=== PATIENT | male | born 1975 | race Two or more races ===

== ENCOUNTER 2024-08-26 07:37 | Emergency (ER) | payer MEDICAID ==
[~2024-08-26] VITALS: Ht 190.5 cm; Wt 82.6 kg
[~2024-08-26 07:37] MED LIST: COU1T PO
[2024-08-26 07:48] VITALS: TEMP 97.6
--- NOTE | 2024-08-26 08:27 | Physician Documentation ---
History of Present Illness ~ Chief Complaint: Testicular Pain Stated Complaint: GROIN PAIN Time Seen by MD: 08:16 Primary Medical Doctor: none HPI 49-year-old male presenting with right testicular swelling and pain that has been ongoing for the past seven days and worsening. He states that his testicle has become slightly painful and that has become red and is gradually growing larger. He describes some minimal dysuria but states that it is not overly painful. Denies any discharge from his urethra. He reports that he has had the same sexual partner for the past couple of years and actually has not had any sexual intercourse for about 5-6 months. No trauma to the area. He does endorse some subjective fevers and chills but no other associated symptoms. Medication Reconciliation Allergies: Coded Allergies: No Known Allergies (Unverified , 08/26/24) Scheduled Warfarin Sodium* (Coumadin*), 2 MG PO DAILY, (Reported) Past Medical History Past Medical History: No Pertinent History Past Surgical History: no surgical history Alcohol Use: Occasionally Drug Use: none Review of Systems All Other Systems at this time: Reviewed and Negative Physical Exam Vital Signs: Temperature: 97.6, Source: Temporal, Heart Rate: 90, Respiratory Rate: 18, BP: 105/75, Pulse Oximetry: 99, Weight: 82.600 General Appearance I have reviewed the triage vitals. CONST: Well developed and well nourished. In no acute distress HENT: Head Atraumatic EYES: Pupils are equal, round and reactive to light. Normal conjunctiva NECK: Normal range of motion. Supple. CARDIO: Normal rate and regular rhythm. No murmurs, rubs, or gallops. S1, S2. PULM/CHEST: No respiratory distress. Lungs clear to auscultation. No wheeze ABD: Soft and nontender. Nondistended. Bowel sounds normal. No guarding. : Normal penis. The right side of the scrotum is erythematous. Right testicle is enlarged with mild tenderness to palpation. Negative cremasteric reflex. MSK: No edema. No deformity. NEURO: Alert and oriented to person, place and time. Moving all extremities SKIN: Warm and dry. PSYCH: Normal mood and affect. Good eye contact. Progress Results/Orders Results/Orders Orders - TAMARA GUTIERREZ MD Culture Blood (08/26/24 08:23) Chlam/Gc Amp Ur (08/26/24 08:23) Us Testic/W/Duplex (08/26/24 08:23) Cult Urine + [address] (08/26/24 09:57) Completed Orders - TAMARA GUTIERREZ MD Electrocardiogram (08/26/24 08:23) Cbc/Diff (08/26/24 08:23) Hs Troponin I W Calculations (08/26/24 08:23) CMP (08/26/24 08:23) Lacticsepsis (08/26/24 08:23) Procalcitonin (08/26/24 08:23) Us Testic/W/Duplex (08/26/24 08:23) Ua W/Microscopic, Cult If Ind (08/26/24 09:33) Ceftriaxone/L5h-Asxzjhab 1gm (Rocephin 1 (08/26/24 10:15) Medications Received in ER Medications (Trade) Dose Ordered Sig/Liz Route PRN Reason Start Time Stop Time Status Last Admin Dose Admin Ceftriaxone Sodium 50 ml @ 100 mls/hr ONCE ONCE IV 08/26/24 10:15 08/26/24 10:44 DC 08/26/24 11:27 100 MLS/HR Vital Signs 08/26/24 08/26/24 08/26/24 08/26/24 07:48 08:28 09:57 11:34 Temp 97.6 Pulse 90 67 66 Resp 18 16 16 16 B/P (MAP) 105/75 131/88 (102) 119/76 (90) Pulse Ox 99 100 99 O2 Flow Rate 0 0 Laboratory Tests Test 08/26/24 08:36 08/26/24 08:42 08/26/24 09:33 Lactic Acid Level 1.0 White Blood Count 12.3 H Red Blood Count 4.62 L Hemoglobin 14.6 Hematocrit 42.9 Mean Corpuscular Volume 93.0 Mean Corpuscular Hemoglobin 31.5 H Mean Corpuscular Hemoglobin Concent 33.9 Red Cell Distribution Width 13.9 Platelet Count 165 Mean Platelet Volume 8.0 Neutrophils (%) (Auto) 86.3 H Lymphocytes (%) (Auto) 6.8 L Monocytes (%) (Auto) 6.2 Eosinophils (%) (Auto) 0.2 Basophils (%) (Auto) 0.5 Neutrophils # (Auto) 10.6 H Lymphocytes # (Auto) 0.8 L Monocytes # (Auto) 0.8 Eosinophils # (Auto) 0.0 Basophils # (Auto) 0.1 CBC Comment Sodium Level 136 Potassium Level 4.1 Chloride Level 102 Carbon Dioxide Level 28.0 Anion Gap 6 L Blood Urea Nitrogen 15 Creatinine 0.99 Estimated GFR/1.73 m2 80 BUN/Creatinine Ratio 15.2 Glucose Level 96 Calcium Level 9.4 Total Bilirubin 0.8 Aspartate Amino Transf (AST/SGOT) 17 Alanine Aminotransferase (ALT/SGPT) 17 Alkaline Phosphatase 51 Troponin I High Sensitivity < 4 L Troponin I High Sens Percent Delta Troponin I Hi Sens Absolute Change Total Protein 7.6 Albumin 3.3 L Globulin 4.3 Albumin/Globulin Ratio 0.8 L Procalcitonin 0.44 Chemistry Comments Urine Specimen Description Cln catch midstream Urine Color Yellow Urine Clarity Turbid Urine pH 6.0 Urine Specific [place] >=1.030 Urine Protein 30 H Urine Glucose (UA) Negative Urine Ketones Trace H Urine Occult Blood Small Urine Nitrite Negative Urine Bilirubin Moderate Urine Urobilinogen 1.0 Urine Leukocyte Esterase Small H Urine RBC 3-10 Urine WBC 50-100 H Urine WBC Clumps Few Urine Squamous Epithelial Cells Few Urine Renal Cells Few Urine Bacteria 4+ Urine Culture Indicated Indicated Volume Urine Centrifuged 10 ml Urine Comment Microbiology Date/Time Source Procedure Growth Status 08/26/24 09:57 Urine Clean Catch Midstream Urine Culture - Preliminary Culture received. Resulted 08/26/24 08:42 Blood Arm Right Blood Culture - Preliminary NEGATIVE (LESS THAN 24 HOURS) Resulted EKG/XRAY/CT/US/VASC/MRI Ultrasound : Impression CLINICAL INFORMATION: Right testicular swelling . TECHNIQUE: Grayscale sonographic imaging of the testicles and scrotal contents was performed , assisted by color doppler technique. Duplex doppler ultrasound of both testicles was performed. COMPARISON: None FINDINGS: The right testicle measures 4.8 x 3.1 x 3.4 cm, within normal limits. Heterogeneous echogenicity of the right testicle. Mildly increased vascular flow in the right testicle. Mildly heterogeneous echogenicity of the right epididymis with mildly increased vascular flow. Small to moderate right hydrocele. The left testicle measures 4.8 x 2.6 x 2.0 cm, within normal limits. Mildly heterogeneous echogenicity of the left testicle. Arterial and venous blood flow demonstrated. Unremarkable epididymis. No hydrocele or varicocele. IMPRESSION: 1. No sonographic evidence of testicular torsion. 2. Findings consistent with right epididymo-orchitis with small to moderate hydrocele Medical Decision Making Additional Comment 49-year-old male presenting with right-sided epididymitis and orchitis. This was evident from the clinical exam and clinical history. Additionally we did do an ultrasound of his testicles which confirmed this. The patient's lab work is grossly unremarkable aside from a urinalysis which is suggestive of a urinary tract infection. I did test the patient for gonorrhea and chlamydia as well and the results are pending at this time. Urine culture is also pending. The patient was treated with 1 g of ceftriaxone. I will additionally prescribe him a 10 day course of doxycycline as well as levofloxacin to cover him for both potential STDs as well as typical urinary pathogens. I advised him that for pain control he may take [id number] ibuprofen as needed. Patient was advised to monitor his symptoms for improvement and resolution. He is to follow up closely with his primary care physician in the next week. Return to the ED with any acutely worsening symptoms. Departure Disposition: 01 HOME / SELF CARE / HOMELESS Impression: Primary Impression: Orchitis and epididymitis Condition: Improved Discharge Instructions: Orchitis Additional Instructions: Please take your antibiotics as prescribed and monitor her symptoms for improvement and resolution. Please take ibuprofen 600 mg every 6 hours as needed for pain control. Follow up with primary care physician within the next week especially if not improving. Return to the emergency department with any acutely worsening symptoms. Referrals: NO PRIMARY CARE PROVIDER (PCP) Prescriptions Doxycycline Hyclate (Doxycycline Hyclate) 100 Mg Capsule 1 CAP PO Q12H for 10 Days, #20 CAP Prov: TAMARA GUTIERREZ MD 08/26/24 Levofloxacin (Levofloxacin) 500 Mg Tablet 1 TAB PO DAILY for 10 Days, #10 TAB Prov: TAMAAR GUTIERREZ MD 08/26/24 Signature Scribe Signature: 1 Attestation: 1 TAMARA GUTIERREZ MD Aug 26, 2024 08:27
[2024-08-26 09:11] LABS: MEAN PLATELET VOLUME 8.0 FL (7.4-10.4); RED CELL DISTRIBUTION WIDTH 13.9 % (11.5-14.5)
--- NOTE | 2024-08-26 09:19 | ELECTROCARDIOGRAPH REPORT ---
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
[2024-08-26 09:39] LABS: CREATININE 0.99 MG/DL (0.60-1.10); TOTAL CARBON DIOXIDE 28.0 MMOL/L (24-32); eCRCL 105 ML/MIN; eGFR 80 ML/MIN
[2024-08-26 09:41] LABS: LEUKOCYTE ESTERASE ,URINE SMALL (Neg); NITRITES, URINE NEGATIVE (Neg); OCCULT BLOOD,URINE SMALL (Neg)
[2024-08-26 09:43] LABS: UA COLLECTION TYPE CLN CATCH MIDSTREAM
--- NOTE | 2024-08-26 09:44 | RADIOLOGY REPORT ---
CLINICAL INFORMATION: Right testicular swelling . TECHNIQUE: Grayscale sonographic imaging of the testicles and scrotal contents was performed , amanda dean by color doppler technique. Duplex doppler ultrasound of both testicles was performed. COMPARISON: None FINDINGS: The right testicle measures 4.8 x 3.1 x 3.4 cm, within normal limits. Heterogeneous echogenicity of t he right testicle. Mildly increased vascular flow in the right testicle. Mildly heterogeneous echog enicity of the right epididymis with mildly increased vascular flow. Small to moderate right hydrocel e. The left testicle measures 4.8 x 2.6 x 2.0 cm, within normal limits. Mildly heterogeneous echogenicit y of the left testicle. Arterial and venous blood flow demonstrated. Unremarkable epididymis. No hy drocele or varicocele. IMPRESSION: 1. No sonographic evidence of testicular torsion. 2. Findings consistent with right epididymo-orchitis with small to moderate hydrocele
[2024-08-26 09:48] LABS: SQUAMOUS EPITHELIAL CELL,UR FEW /LPF (FEW)
[2024-08-26 09:49] LABS: WBC CLUMPS,URINE FEW /HPF (NEGATIVE)
[2024-08-26 09:50] LABS: RENAL CELLS, URINE FEW /HPF
[2024-08-26] MEDS: CefTRIAXone/D5W-Rocephin 1gm 50 ML IV ONE (11:27)
[2024-08-26 11:34] VITALS: BP 119/76; PULSE 66; RESP 16; O2SAT 99
[2024-08-26] MEDS ORDERED: LEVO-65 PO (11:37)
[2024-08-26] MEDS ORDERED: DOXY-1 PO (11:37)
== END 2024-08-26 12:00 | disposition home or self-care (01) ==
LOC: ER 07:37
DX: N45.3 Epididymo-orchitis (principal); Z79.899 Other long term (current) drug therapy
CPT/HCPCS: 36415; 76870; 80053; 81001; 83605; 84145; 84484; 85025; 87040; 87088; 87491; 87591; 93005; 93976; 96365; 99285; J0696; 87077; 87186

== ENCOUNTER 2024-12-21 17:11 | Emergency (ER) | payer SELFPAY ==
[~2024-12-21] VITALS: Ht 177.8 cm; Wt 92.3 kg
[2024-12-21 17:23] VITALS: BP 133/85; PULSE 87; RESP 18; TEMP 98.4; O2SAT 99
--- NOTE | 2024-12-21 17:27 | ELECTROCARDIOGRAPH REPORT ---
[facility] Test Date: 2024-12-21 Test Time: 17:22:25 Pat Name: MELISSA DOBSON Department: EMERGENCY ROOM Room: Gender: M Dental Detail Representative: MARISELA : 1975 Requested By: MUNIR GARCIA Order Number: [id number] Reading MD: Measurements Intervals [place] Rate: 96 P: 71 HI: 159 QRS: 73 QRSD: 96 T: 51 QT: 309 QTc: 391 Interpretive Statements Sinus rhythm ST elev, probable normal early repol pattern Baseline wander in lead(s) I,II,aVR,aVF,V1 Please click the below link to view image of tracing.
[2024-12-21 17:45] LABS: MEAN PLATELET VOLUME 7.7 FL (7.4-10.4); RED CELL DISTRIBUTION WIDTH 16.3 % (11.5-14.5)
--- NOTE | 2024-12-21 17:45 | RADIOLOGY REPORT ---
EXAM: DI CHEST,SINGLE VIEW CLINICAL HISTORY: CP TECHNIQUE: Single AP view of the chest WID: COMPARISON: None FINDINGS: Lines and tubes: None Chest: The heart size and pulmonary vasculature is within normal limits. Calcified plaque projects over the aortic arch. No pleural effusion, pneumothorax, or consolidation. The osseous structures are grossly intact. IMPRESSION: 1. No acute cardiopulmonary abnormality.
[2024-12-21 17:57] LABS: CREATININE 0.80 MG/DL (0.60-1.10); PRO BRAIN NATRIURETIC PEPTIDE 34 PG/ML (0-125); TOTAL CARBON DIOXIDE 25.1 MMOL/L (24-32); eCRCL 115 ML/MIN; eGFR > 90 ML/MIN
--- NOTE | 2024-12-21 18:43 | Physician Documentation ---
History of Present Illness ~ Chief Complaint: Chest Pain Stated Complaint: CP Time Seen by MD: 21:10 Primary Medical Doctor: none HPI This is a 49-year-old male who presents with a two days of left upper lateral chest pain extending to his left anterior shoulder, patient reports onset upon waking two days prior, patient reports no aggravating or palliating factors. Pain is described as like a muscle strain. Patient reports no shortness of breath or nausea. Patient reports no other acute symptoms or concerns. Patient reports no significant past medical history though does report he is a every day smoker. Medication Reconciliation Allergies: Coded Allergies: No Known Allergies (Unverified , 12/21/24) Scheduled Warfarin Sodium* (Coumadin*), 2 MG PO DAILY, (Reported) Past Medical History Past Medical History: No Pertinent History Past Surgical History: no surgical history Smoking Status: Current every day smoker Alcohol Use: Occasionally Drug Use: none Review of Systems ROS As stated above in the HPI, otherwise all systems are reviewed and negative. Physical Exam Vital Signs: Temperature: 98.4, Source: Temporal, Heart Rate: 87, Respiratory Rate: 18, BP: 133/85, Pulse Oximetry: 99, Weight: 92.300 Oxygen Flow Rate: 0 Physical Exam VITALS: Reviewed and as above. GENERAL: Alert, nontoxic appearing, no apparent distress. RESPIRATORY: No increased work of breathing, no respiratory distress, speaking in full clear sentences, clear lung sounds in all jon CHEST: Nontender to palpation CV: Regular rate and rhythm no murmur Progress Results/Orders Results/Orders Vital Signs 12/21/24 17:23 Temp 98.4 Pulse 87 Resp 18 B/P (MAP) 133/85 Pulse Ox 99 O2 Flow Rate 0 Laboratory Tests Test 12/21/24 17:20 12/21/24 19:30 White Blood Count 9.3 Red Blood Count 4.98 Hemoglobin 16.7 Hematocrit 48.5 Mean Corpuscular Volume 97.5 Mean Corpuscular Hemoglobin 33.6 H Mean Corpuscular Hemoglobin Concent 34.5 Red Cell Distribution Width 16.3 H Platelet Count 224 Mean Platelet Volume 7.7 Neutrophils (%) (Auto) 76.9 H Lymphocytes (%) (Auto) 12.9 L Monocytes (%) (Auto) 9.3 Eosinophils (%) (Auto) 0.6 Basophils (%) (Auto) 0.3 Neutrophils # (Auto) 7.1 Lymphocytes # (Auto) 1.2 Monocytes # (Auto) 0.9 Eosinophils # (Auto) 0.1 Basophils # (Auto) 0.0 CBC Comment Sodium Level 136 Potassium Level 4.2 Chloride Level 104 Carbon Dioxide Level 25.1 Anion Gap 7 L Blood Urea Nitrogen 13 Creatinine 0.80 Estimated GFR/1.73 m2 > 90 BUN/Creatinine Ratio 16.3 Glucose Level 102 Calcium Level 8.6 Troponin I High Sensitivity 4 5 Pro-B-Type Natriuretic Peptide 34 Albumin 3.6 Chemistry Comments Troponin I High Sens Percent Delta 25 Troponin I Hi Sens Absolute Change 1 EKG/XRAY/CT/US/VASC/MRI EKG : Additional Comment EKG at 5:22 p.m. interpreted by myself as sinus rhythm at a rate of 96, normal axis, no ST segment elevation or depression. Chest X-Ray : Additional Comments Exam: CHEST,SINGLE VIEW EXAM: DI CHEST,SINGLE VIEW CLINICAL HISTORY: CP TECHNIQUE: Single AP view of the chest WID: COMPARISON: None FINDINGS: Lines and tubes: None Chest: The heart size and pulmonary vasculature is within normal limits. Calcified pl aque projects over the aortic arch. No pleural effusion, pneumothorax, or consolidation. The osseous structures are grossly intact. IMPRESSION: 1. No acute cardiopulmonary abnormality. Electronically Signed by:KARI RODRÍGUEZ MD Date & Time: 12/21/241741 Dictated by: KARI RODRÍGUEZ MD Dictation date and time: 12/21/24 173 I have reviewed and agree with the radiology report. I have reviewed and interpreted the imaging as: No focal consolidation or pneumothorax Heart Score: Heart Score Response (Comments) Value History Moderate Suspicious 1 EKG Normal 0 Age 45-64 1 Risk Factors 1 or 2 risk factors 1 Troponin Normal limit 0 Total 3 Medical Decision Making Additional information obtaine: N/A Findings MSE performed in triage and patient returned to ED lobby by nursing staff to await available ED room. ACS protocol initiated. This 49-year-old male presented with two days of left upper chest pain extending to his left anterior shoulder that was described as feels like a muscle strain without palliating or precipitating factors, it was reassuring patient reported no shortness of breath, or nausea. The pain was nonreproducible though did not fit a cardiac pattern especially given patient's report of pain feeling like a strained muscle and constant nature. ECG was without significant finding and troponins were not elevated, given patient's age and smoking history he had a heart score of three please take him in the lower risk group and making appropriate for outpatient follow up. Patient with low pretest probability per [place] (< 15%) and was PERC negative I considered high risk diagnoses such as acute myocardial infarction, pulmonary embolism, aortic dissection, pericarditis/myocarditis, pneumothorax, and pneumonia among other diagnoses, and I reviewed the ECG for ischemia, arrhythmia, myocardial disease or other cardiac abnormality. I independently reviewed the labs and CXR images with CXR showing no evidence of pneumonia, pneumothorax or widened mediastinum Patient is otherwise well-appearing with remainder of physical exam benign and is appropriate for outpatient follow up. Patient provided home care instructions, return to care precautions, and follow up instructions which he verbalized understanding of. Heart Score: 3 Differential Dx:Considerations: Include: angina, aortic dissection, chest wall pain, cholelithiasis, CHF, costochondritis, esophageal reflux/spasm, gastritis, herpes zoster, myocardial infarction, pericarditis, pleuritis, pneumonia, pneumothorax, pulmonary embolus Departure Time of Disposition: 21:24 Disposition: 01 HOME / SELF CARE / HOMELESS Impression: Primary Impression: Chest pain Qualified Codes: R07.9 - Chest pain, unspecified Condition: Improved Discharge Instructions: Nonspecific Chest Pain, Adult Additional Instructions: There was no clear cause of your chest pain though your EKG and labs were within normal limits. Please follow up with your primary care provider in the next few days. Please return to the emergency department for any new or worsening concerning symptoms. Referrals: NO PRIMARY CARE PROVIDER (PCP) Education Educated: Patient Educated regarding: diagnosis, treatment, prognosis, need for follow up Signature Scribe Signature: No scribe Attestation: The note accurately reflects work and decisions made by me.GRETCHEN Whitaker 12/21/24 21:24 JESSICA VOSS Dec 21, 2024 18:43
== END 2024-12-21 21:27 | disposition home or self-care (01) ==
LOC: ER 17:11
DX: R07.9 Chest pain, unspecified (principal); F17.200 Nicotine dependence, unspecified, uncomplicated; Z79.899 Other long term (current) drug therapy; Z72.89 Other problems related to lifestyle
CPT/HCPCS: 36415; 71045; 80048; 83880; 84484; 85025; 93005; 99285